=== PATIENT | male | born 1995 | race African-American/Black ===

== ENCOUNTER 2017-02-08 21:07 | Emergency (ER) | payer MEDICAID ==
[2017-02-08] MEDS ORDERED: ONDANSETRON 4 MG TAB.RAPDIS PO ONE (21:54)
[2017-02-08] MEDS ORDERED: NORMAL SALINE 1000 ML 1,000 ML IV ONE (22:23)
[2017-02-08] MEDS ORDERED: NORMAL SALINE 1000 ML 1,000 ML IV PRN (22:23)
[2017-02-08] MEDS ORDERED: METOCLOPRAMIDE HCL INJ/PF 10 MG/2 ML SDV IV ONE (22:24)
--- NOTE | 2017-02-08 22:28 | ER Document Report ---
ED General - General Chief Complaint: Nausea/Vomiting Stated Complaint: ABDOMINAL PAIN Time Seen by Provider: 02/08/17 22:23 Mode of Arrival: Ambulatory Information source: Patient Notes: 21 years old male presents today with 1 day history of abdominal pain, cramps, nausea and vomited couple of times. Had loose stools 2. Denies any fever chills denies any dysuria frequency urgency. Denies any other constitutional symptoms TRAVEL OUTSIDE OF THE [place] IN LAST 30 DAYS: No - Related Data Allergies/Adverse Reactions: No Known Allergies Allergy (Verified 02/08/17 22:13) Home Medications: Current Home Medications Albuterol Sulfate [Proventil Hfa] 6.7 gm IH ASDIR PRN 02/08/17 [History] Past Medical History - Social History Smoking Status: Never Smoker Family History: None Patient has suicidal ideation: No Patient has homicidal ideation: No Pulmonary Medical History: Reports: Hx Asthma Renal/ Medical History: Denies: Hx Peritoneal Dialysis - Immunizations Immunizations up to date: Yes Hx Diphtheria, Pertussis, Tetanus Vaccination: Yes Review of Systems - Review of Systems Notes: REVIEW OF SYSTEMS: CONSTITUTIONAL : Denies fever, chills, or sweats. Denies recent illness. EENT: Denies eye, ear, throat, or mouth pain or symptoms. Denies nasal or sinus congestion or discharge. Denies throat, tongue, or mouth swelling or difficulty swallowing. CARDIOVASCULAR: Denies chest pain. Denies palpitations or racing or irregular heart beat. Denies ankle edema. RESPIRATORY: Denies cough, cold, or chest congestion. Denies shortness of breath, difficulty breathing, or wheezing. GASTROINTESTINAL: GENITOURINARY: Denies difficulty urinating, painful urination, burning, frequency, blood in urine, or discharge. MUSCULOSKELETAL: Denies back or neck pain or stiffness. Denies joint pain or swelling. SKIN: Denies rash, lesions or sores. HEMATOLOGIC : Denies easy bruising or bleeding. LYMPHATIC: Denies swollen, enlarged glands. NEUROLOGICAL: Denies confusion or altered mental status. Denies passing out or loss of consciousness. Denies dizziness or lightheadedness. Denies headache. Denies weakness or paralysis or loss of use of either side. Denies problems with gait or speech. Denies sensory loss, numbness, or tingling. Denies seizures. PSYCHIATRIC: Denies anxiety or stress. Denies depression, suicidal ideation, or homicidal ideation. ALL OTHER SYSTEMS REVIEWED AND NEGATIVE. Dictation was performed using [employer] voice recognition software PHYSICAL EXAMINATION: GENERAL: Well-appearing, well-nourished and i mild to moderate discomfort n no acute distress. HEAD: Atraumatic, normocephalic. EYES: Pupils equal round and reactive to light, extraocular movements intact, sclera anicteric, conjunctiva are normal. ENT: Nares patent, oropharynx clear without exudates. Moist mucous membranes. NECK: Normal range of motion, supple without lymphadenopathy LUNGS: Breath sounds clear to auscultation bilaterally and equal. No wheezes rales or rhonchi. HEART: Regular rate and rhythm without murmurs ABDOMEN: Soft, nontender, nondistended abdomen. No guarding, no rebound. No masses appreciated. Musculoskeletal: Normal range of motion, no pitting or edema. No cyanosis. NEUROLOGICAL: Cranial nerves grossly intact. Normal speech, normal gait. Normal sensory, motor exams PSYCH: Normal mood, normal affect. SKIN: Warm, Dry, normal turgor, no rashes or lesions noted. As per history of complain Physical Exam - Vital signs Vitals: Temp Pulse Resp BP Pulse Ox 98.7 F 98 H 18 139/82 H 100 02/08/17 21:32 02/08/17 21:32 02/08/17 21:32 02/08/17 21:32 02/08/17 21:32 Course - Re-evaluation Re-evalutation: 02/09/17 00:36 He was given IV hydration, nausea medications, and clinical improvement he was discharged home. Instructed to drink lots of fluids - Vital Signs Vital signs: Temp Pulse Resp BP Pulse Ox 98.7 F 98 H 18 139/82 H 100 02/08/17 21:32 02/08/17 21:32 02/08/17 21:32 02/08/17 21:32 02/08/17 21:32 - Laboratory Result Diagrams: 02/08/17 22:40 02/08/17 22:40 Laboratory results interpreted by me: 02/08/17 02/08/17 02/08/17 22:40 22:40 22:40 WBC 12.4 H MCV 79 L MCH 26.5 L Seg Neuts % (Manual) 91 H Lymphocytes % (Manual) 3 L Abs Neuts (Manual) 11.3 H Abs Lymphs (Manual) 0.4 L Glucose 111 H ALT 48 H Urine Protein 30 H Urine Ketones 20 H Urine Ascorbic Acid 20 H Discharge - Discharge Clinical Impression: Gastroenteritis Condition: Fair Disposition: HOME, SELF-CARE Instructions: Gastroenteritis (adult) [facility] Prescriptions: Ciprofloxacin HCl [Cipro 500 mg Tablet] 500 mg PO BID #20 tablet Promethazine HCl 25 mg PO TID #30 tablet Referrals: MEKA VIGIL MD [Primary Care Provider] - Follow up as needed
[2017-02-08 23:07] LABS: HEMATOCRIT 43.2 % (37.9-51.0); HEMOGLOBIN 14.5 g/dL (13.5-17.0); HGB HCT DIFFERENCE 0.3; MEAN CORPUSCULAR HEMOGLOBIN 26.5 pg (27.0-33.4); MEAN CORPUSCULAR HGB CONC 33.5 g/dL (32.0-36.0); MEAN CORPUSCULAR VOLUME 79 fl (80-97); RED BLOOD COUNT 5.46 10^6/uL (4.35-5.55); RED CELL DISTRIBUTION WIDTH 13.9 % (11.5-14.0); WHITE BLOOD COUNT 12.4 10^3/uL (4.0-10.5)
[2017-02-08 23:11] LABS: AMORPHOUS SEDIMENT,URINE TRACE /HPF; APPEARANCE,URINE SLIGHTLY-CLOUDY; BILIRUBIN,URINE NEGATIVE (NEGATIVE); GLUCOSE, URINE NEGATIVE (NEGATIVE); KETONES,URINE 20 mg/dL (NEGATIVE); LEUKOCYTE ESTERASE,URINE NEGATIVE (NEGATIVE); NITRITE,URINE NEGATIVE (NEGATIVE); PROTEIN,URINE 30 mg/dL (NEGATIVE); URINE SPECIFIC GRAVITY 1.031; UROBILINOGEN,URINE NEGATIVE mg/dL (<2.0)
--- NOTE | 2017-02-08 23:17 | RADIOLOGY REPORT (SQ) ---
EXAM DESCRIPTION: KUB/ABDOMEN (SINGLE VIEW) CLINICAL HISTORY: 21 years, Male, Abdominal pain COMPARISON: None. NUMBER OF VIEWS: 1 LIMITATIONS: None. FINDINGS: No dilated bowel. Paucity of bowel gas. No suspicious calcification. Intact bony structures. IMPRESSION: No acute findings. 2011 [employer]- All Rights Reserved
[2017-02-08 23:21] LABS: ALANINE AMINOTRANSFERASE 48 U/L (10-40); ALBUMIN 4.9 g/dL (3.7-5.6); ALKALINE PHOSPHATASE 87 U/L (65-260); ANION GAP 12 (5-19); ASPARTATE AMINO TRANSFERASE 27 U/L (10-45); BILIRUBIN,DIRECT 0.2 mg/dL (0.0-0.4); BILIRUBIN,TOTAL 0.6 mg/dL (0.2-1.3); BLOOD UREA NITROGEN 20 mg/dL (7-20); CALCIUM 10.2 mg/dL (8.4-10.2); CARBON DIOXIDE 25 mmol/L (22-30); CHLORIDE 104 mmol/L (98-107); CREATININE RESULT 0.89 mg/dL (0.52-1.25); GLUCOSE 111 mg/dL (75-110); LIPASE 46.9 U/L (23-300); POTASSIUM 4.4 mmol/L (3.6-5.0); SODIUM 141.2 mmol/L (137-145); TOTAL PROTEIN 7.4 g/dL (6.3-8.2)
[2017-02-08 23:29] LABS: ABSOLUTE EOSINOPHILS# (MANUAL) 0.1 10^3/uL (0.0-0.6); BASOPHILS % (MANUAL) 0 % (0-2); EOSINOPHILS % (MANUAL) 1 % (0-6); LYMPHOCYTES % (MANUAL) 3 % (13-45); TOTAL CELLS COUNTED 100
[2017-02-08 23:30] LABS: ANISOCYTOSIS SLIGHT; TOXIC VACUOLATION PRESENT
[2017-02-08 23:35] LABS: URINE BARBITURATES SCREEN NEGATIVE; URINE METHADONE SCREEN NEGATIVE; URINE OPIATES LOW NEGATIVE; URINE PHENCYCLIDINE SCREEN NEGATIVE
[2017-02-09] MEDS ORDERED: CIPROFLOXACIN HCL 500 MG TABLET PO ONE (00:35)
[2017-02-09 00:50] VITALS: BP 117/64
== END 2017-02-09 00:48 | disposition home or self-care (01) ==
LOC: ER 21:07
DX: K52.9 Noninfective gastroenteritis and colitis, unspecified (principal); R11.2 Nausea with vomiting, unspecified; R10.9 Unspecified abdominal pain; R19.4 Change in bowel habit; J45.909 Unspecified asthma, uncomplicated
CPT/HCPCS: 99283; 96361; 96374; 36415; 83690; 85025; 80053; 81001; 80307; 74000; J3490; S0119; J2765; J7030

== ENCOUNTER 2019-02-23 13:39 | Emergency (ER) | payer MEDICAID ==
--- NOTE | 2019-02-23 15:29 | ER Document Report ---
HPI - HPI Time Seen by Provider: 02/23/19 14:09 Pain Level: 4 Notes: Otherwise healthy 23-year-old male presenting to the emergency department chief complaint of sore throat. Patient reports he is a carrier of strep, states that this feels similar to when he has had strep throat in the past. Denies any fevers. Reports the pain in his throat is severe. He is able to swallow but reports pain with swallowing. - EENT EENT: REPORTS: Sore Throat - REPRODUCTIVE Reproductive: DENIES: : Past Medical History - General Information source: Patient - Social History Smoking Status: Never Smoker Chew tobacco use (# tins/day): No Frequency of alcohol use: None Drug Abuse: None Family History: None Patient has suicidal ideation: No Patient has homicidal ideation: No Pulmonary Medical History: Reports: Hx Asthma Renal/ Medical History: Denies: Hx Peritoneal Dialysis - Immunizations Immunizations up to date: Yes Hx Diphtheria, Pertussis, Tetanus Vaccination: Yes Vertical Provider Document - CONSTITUTIONAL Notes: PHYSICAL EXAMINATION: GENERAL: Well-appearing, well-nourished and in no acute distress. HEAD: Atraumatic, normocephalic. EYES: Pupils equal round extraocular movements intact, conjunctiva are normal. ENT: Nares patent, bilateral tonsillar swelling with exudates noted, uvula midline, no evidence of tonsillar peritonsillar abscess. NECK: Normal range of motion LUNGS: No respiratory distress Musculoskeletal: Normal range of motion NEUROLOGICAL: Normal speech, normal gait. PSYCH: Normal mood, normal affect. SKIN: Warm, Dry, normal turgor, no rashes or lesions noted. - INFECTION CONTROL TRAVEL OUTSIDE OF THE [place] IN LAST 30 DAYS: No Course - Re-evaluation Re-evalutation: Rapid strep negative, throat culture pending. No evidence of tonsillar abscess. Conservative treatment measures will be implemented. Patient is agreeable to this plan. - Vital Signs Vital signs: Temp Pulse Resp BP Pulse Ox 98.6 F 79 16 140/85 H 100 02/23/19 13:42 02/23/19 13:42 02/23/19 13:42 02/23/19 13:42 02/23/19 13:42 Discharge - Discharge Clinical Impression: Sore throat Condition: Stable Disposition: HOME, SELF-CARE Instructions: Sore Throat ([facility]) Additional Instructions: Fortunately the rapid strep test today was negative. A throat culture is pending. If there is any abnormality with this on will call you in the next 2 days. If it is positive we would call in an antibiotic prescription for you. In the meanwhile take the prednisone as prescribed, this will help reduce some of the inflammation in your throat that is causing you discomfort. Take Tylenol and/or ibuprofen this will also help with pain. Drink plenty of fluids. Use salt water gargles. Warm tea will also help with the discomfort. Return to the emergency department if you develop new or worsening symptoms such as inability to swallow your own secretions or difficulty breathing. Prescriptions: Prednisone [Deltasone 20 mg Tablet] 3 tab PO DAILY 5 Days #15 tablet Forms: Return to Work Referrals: MEKA VIGIL MD [Primary Care Provider] - Follow up as needed
[2019-02-23 16:11] VITALS: BP 137/77
== END 2019-02-23 16:11 | disposition home or self-care (01) ==
LOC: ER 13:39
DX: J02.9 Acute pharyngitis, unspecified (principal)
CPT/HCPCS: 87070; 87077; 87880; 99283